=== PATIENT | male | born 1940 | race Caucasian/White ===

== ENCOUNTER 2023-03-08 12:46 | Emergency (ER) | payer OTHER, SELFPAY ==
[2023-03-08 12:49] VITALS: BP 167/97
[2023-03-08 14:14] VITALS: BMI 27.5
--- NOTE | 2023-03-08 14:51 | EDRN ---
Livier Duarte PA in room w/pt at this time.
[2023-03-08 14:53] LABS: % Basophils 0.4 % (0-2); % Immature Granulocytes 0.1 % (0-0.5); % Lymphocytes 18.9 % (20.5-51.1); % Monocytes 11.1 % (1.7-9.3); % Neutrophils 67.5 % (42.2-75.2); Absolute Eosinophils 0.2 10^3/uL (0-0.7); Absolute Lymphocytes 1.5 10^3/uL (1.2-3.4); Absolute Monocytes 0.9 10^3/uL (0.1-0.6); Absolute Neutrophils 5.3 10^3/uL (1.4-6.5); Hemoglobin 15.4 g/dL (13.0-18.0); Mean Corp Hgb Conc. 33.5 g/dL (33.0-37.0); Mean Corpuscular Hgb 28.5 pg (27.0-31.0); Mean Platelet Volume 10.8 fL (7.4-10.4); Nucleated Red Blood Cells % 0 % (-); Platelet Count 191 10^3/uL (130-400); Red Blood Cell Count 5.41 10^6/uL (4.70-6.10); Red Cell Dist. Width 14.1 % (11.5-14.5); White Blood Cell Count 7.8 10^3/uL (4.8-10.8)
--- NOTE | 2023-03-08 14:55 | ED.GENMED ---
History of Present Illness
General
Chief Complaint: Bowel Problem
Time Seen by Provider: 03/08/23 14:07
Travel History
Have you had any contact with someone who has COVID-19?: No
Do you have any symptoms of coronavirus? Fever > 100 degrees, chills, cough, shortness of breath, sore throat, loss of taste or smell, muscle aches, or headache?: No
History of Present Illness
History of Present Illness:
82-year-old male presents the emergency department for evaluation of constipation for the past 5 days. He underwent an upper endoscopy 5 days ago and states after coming home from this he had increasing constipation. He has passed intermittent
stool as well as small color of the bowel movements. Denies any rectal pain or pressure. No fever, chills, sweats, nausea, or vomiting. Denies any abdominal pain at this point.
Review of Systems
Review of Systems
Allergies reviewed?: Yes
All Other Systems: ROS reviewed and negative except as documented in HPI and ROS
Phy Exam
Physical Exam
Physical Exam:
GEN: Well appearing, NAD, WDWN
HEENT: Oral mucosa moist, no scleral icterus
Cardiac: Regular rate
Lung: No respiratory distress, no tachypnea
Abdomen: Soft, nontender, no rigidity
MSK: No gross deformity or injuries
Skin: Good color, no pallor or jaundice, no rashes
Neuro: AO x3, moves all extremities freely
Psych: Calm, cooperative
Course
Orders/Labs/Results
Orders:
Orders
03/08/23 14:20
IV Insert/Care/Rem.- Treatment PRN
03/08/23 14:31
Complete Blood Count/With Diff Urgent
Comprehensive Metabolic Panel Urgent
03/08/23 14:55
CR Obstruct Series W/pa Chest Urgent
Comment:
Reason For Exam: constipation
03/08/23 15:48
Magnesium Citrate [Citroma] 300 ml PO ONCE ONE
Abnormal Lab Results
03/08/23
14:31
MPV 10.8 H fL
(7.4-10.4)
Absolute Monos (auto) 0.9 H 10^3/uL
(0.1-0.6)
Lymphocytes % 18.9 L %
(20.5-51.1)
Monocytes % 11.1 H %
(1.7-9.3)
BUN 21 H mg/dl
(9-20)
03/08/23 14:31
03/08/23 14:31
Vital Signs
Initial and Last Documented VS:
Initial Vital Signs
Temp Pulse Resp BP Pulse Ox
97.7 F 74 16 167/97 92
03/08/23 12:49 03/08/23 12:49 03/08/23 12:49 03/08/23 12:49 03/08/23 12:49
Last Documented Vital Signs
Temp Pulse Resp BP Pulse Ox
97.7 F 81 16 161/101 94
03/08/23 12:49 03/08/23 16:00 03/08/23 16:00 03/08/23 16:00 03/08/23 16:00
MDM/Problems Addressed
MDM/Problems Addressed:
Patient's exam is not concerning for bowel obstruction as he is soft and nontender. X-rays suggest a large stool burden, no indication for enema or suppositories as it appears to be widespread to the colon and not focused to the rectum. Will give
mag citrate, educated on further supportive care
*Critical Care Note
Total Time (30-74mins, 75-104mins- exclusive of procedures): Not Applicable
ED Attending Note
-
Portions of this chart may have been created with voice recognition software.� Occasional wrong word or��sound alike� substitutions may have occurred due to the inherent limitations of voice recognition software.
Discharge Plan
Departure
Patient Disposition: Home (Routine Discharge)
Date of Disposition: 03/08/23
Time of Disposition: 15:48
Patient with high blood pressure during this ER visit?: No
Discharge Problem:
Constipation
Instructions: Constipation, Adult (DC)
Referrals:
Yelena Hunt MD [Family Provider] -
Activity Restrictions/Additional Instructions:
Drink plenty of fluids
Please increase your fiber intake
Interventions
Interventions:
*Risk Screen - Suicide Last Done: 03/08/23 12:49
*General Assessment Last Done: 03/08/23 12:49
*Neglect/Abuse Screening Last Done: 03/08/23 12:49
ED- Fall Risk Assessment Last Done: 03/08/23 14:19
*ED COVID-19 Vaccine History Last Done: 03/08/23 14:19
*Nursing Disposition Last Done: 03/08/23 16:00
ZX-[id number] Assessment Last Done: 03/08/23 14:21
Discharge Date and Time
Discharge Date/Time: 03/08/23 16:01
[2023-03-08 15:00] VITALS: BP 137/82
[2023-03-08 15:15] LABS: ALT (SGPT) 14 U/L (0-50); AST (SGOT) 18 U/L (17-59); Albumin 3.5 g/dl (3.5-5.0); Alkaline Phosphatase 108 U/L (38-126); Blood Urea Nitrogen 21 mg/dl (9-20); Calcium 9.5 mg/dl (8.4-10.2); Carbon Dioxide 30 mmol/L (22-30); Chloride 99 mmol/L (98-107); Estimated Creatinine Clearance 45 ml/min; Glucose 93 mg/dl (70-99); Potassium 4.2 mmol/L (3.5-5.1); Sodium 137 mmol/L (135-145); Total Bilirubin 0.8 mg/dl (0.2-1.3); Total Protein 6.4 g/dl (6.3-8.2); eGFR > 60.00
[2023-03-08] MEDS: CITROMA 300 ML PO (15:57)
[2023-03-08 16:00] VITALS: BP 161/101
== END 2023-03-08 16:01 | disposition home or self-care (01) ==
LOC: EMR 12:46
PROVIDERS: EMERGENCY PHYSICIAN Emergency Medicine; FAMILY PHYSICIAN Family Medicine
DX: K59.00 Constipation, unspecified (principal)
CPT/HCPCS: 99283; 74022; 80053; 85025